=== PATIENT | female | born 1955 | race Caucasian/White ===

== ENCOUNTER 2019-10-18 06:50 | Day surgery (SDC) | payer BC ==
[~2019-10-18 06:50] MED LIST: ULTRAM50 MG OR
[2019-10-18 09:33] VITALS: BP 132/69
== END 2019-10-18 09:20 | disposition home or self-care (01) | DRG 951 ==
LOC: ENDO 06:50
PROVIDERS: ATTEND Surgery
PROC: 0DJD8ZZ Inspection of Lower Intestinal Tract, Via Natural or Artificial Opening Endoscopic (ICD-10-PCS; principal; 2019-10-18)
DX: Z12.11 Encounter for screening for malignant neoplasm of colon (principal); Z85.038 Personal history of other malignant neoplasm of large intestine; Z90.49 Acquired absence of other specified parts of digestive tract; Z88.0 Allergy status to penicillin; Z20.828 Contact with and (suspected) exposure to other viral communicable diseases

== ENCOUNTER 2021-09-01 11:46 | Observation (INO) | payer BC ==
[~2021-09-01] VITALS: Ht 160 cm; Wt 73.0 kg
[2021-09-01] VITALS (58 sets, daily range): BP systolic 126–215; BP diastolic 82–149
[2021-09-01 12:32] LABS: HEMATOCRIT 49.1 % (37.0-47.0); HEMOGLOBIN 16.6 g/dl (12.0-16.0); MEAN CELL VOLUME 101.7 fL CALC (80.0-100.0); MEAN CORPUSCULAR HGB 34.4 pG CALC (26.0-32.0); MEAN CORPUSCULAR HGB CONC 33.8 g/dL CAL (32.0-36.0); NEUT# 3.06 thou/uL (2.00-7.15); RED BLOOD COUNT 4.83 mill/uL (4.20-5.60); RED CELL DISTRI WIDTH 12.1 % (11.5-15.5)
[2021-09-01 13:43] LABS: BUN 4 mg/dL (8-23); BUN/CREATININE RATIO 9 (12-20 (CALC)); CARBON DIOXIDE 25 mmol/l (22-30); CHLORIDE 96 mmol/l (95-108); CREATININE 0.5 mg/dL (0.5-1.0); GFR FOR AFR.AMER. > 60 ML/MIN (>=60 (CALC)); GFR OTHER RACES > 60 ML/MIN (>=60 (CALC)); SODIUM 138 mmol/l (137-146); TOTAL PROTEIN 8.7 g/dL (6.3-8.2)
[2021-09-01 13:44] LABS: ALKALINE PHOSPHATASE 146 u/l (38-126); ANION GAP 20 (6-22 (CALC)); BILIRUBIN, TOTAL 1.5 mg/dL (0.0-1.4); SGOT/AST 154 u/l (9-36)
[2021-09-01 14:34] LABS: TSH, 3RD GENERATION 1.54 uIU/mL (0.47 - 4.68)
[2021-09-02] VITALS (51 sets, daily range): BP systolic 124–263; BP diastolic 74–215
[2021-09-02 04:16] LABS: ANION GAP 8 (6-22 (CALC)); BUN 6 mg/dL (8-23); BUN/CREATININE RATIO 15 (12-20 (CALC)); CALCULATED LDLCHOLESTEROL 78 mg/dL (62-129 (CALC)); CARBON DIOXIDE 28 mmol/l (22-30); CHLORIDE 103 mmol/l (95-108); CHOLESTEROL HDL RATIO 2.2 (<4.4 (CALC)); CREATININE 0.4 mg/dL (0.5-1.0); GFR FOR AFR.AMER. > 60 ML/MIN (>=60 (CALC)); GFR OTHER RACES > 60 ML/MIN (>=60 (CALC)); HDL CHOLESTEROL 78 mg/dL (>=40); MAGNESIUM 1.8 mg/dL (1.6-2.3); POTASSIUM 2.7 mmol/l (3.5-5.1); SODIUM 137 mmol/l (137-146); TOTAL CHOLESTEROL 175 mg/dl (0-199); TOTAL TRIGLYCERIDES 92 mg/dl (30-149); VLDL CHOLESTROL 18 mg/dl (1-41 (CALC))
[2021-09-03] VITALS (28 sets, daily range): BP systolic 112–174; BP diastolic 61–105
[2021-09-03 05:32] LABS: MEAN CELL VOLUME 104.4 fL CALC (80.0-100.0); MEAN CORPUSCULAR HGB 34.8 pG CALC (26.0-32.0); MEAN CORPUSCULAR HGB CONC 33.3 g/dL CAL (32.0-36.0); RED BLOOD COUNT 4.08 mill/uL (4.20-5.60); RED CELL DISTRI WIDTH 12.4 % (11.5-15.5)
[2021-09-03 05:33] LABS: HEMATOCRIT 42.6 % (37.0-47.0); HEMOGLOBIN 14.2 g/dl (12.0-16.0)
[2021-09-03 05:44] LABS: ANION GAP 10 (6-22 (CALC)); BUN 6 mg/dL (8-23); BUN/CREATININE RATIO 14 (12-20 (CALC)); CARBON DIOXIDE 25 mmol/l (22-30); CHLORIDE 106 mmol/l (95-108); CREATININE 0.4 mg/dL (0.5-1.0); GFR FOR AFR.AMER. > 60 ML/MIN (>=60 (CALC)); GFR OTHER RACES > 60 ML/MIN (>=60 (CALC)); MAGNESIUM 1.8 mg/dL (1.6-2.3); SODIUM 138 mmol/l (137-146)
[2021-09-03] MEDS ORDERED: CHLORDIAZEPOXID25 M1 PO (08:46)
[2021-09-03] MEDS ORDERED: AMLODIPINE BESYL5 MG PO (08:46)
[2021-09-03] MEDS ORDERED: LOPRESSOR 550 MG/TAB PO (08:46)
[2021-09-03] MEDS ORDERED: POTASSIUM CHLO10 ME4 PO (08:46)
== END 2021-09-03 16:10 | disposition home or self-care (01) | DRG 309 ==
LOC: ED 11:46 → ED-I 14:43 → ED 14:58 → ICU 14:59
PROVIDERS: Family Medicine; ADMIT Internal Medicine; ATTEND Internal Medicine
DX: R00.0 Tachycardia, unspecified (principal); F10.239 Alcohol dependence with withdrawal, unspecified; I10 Essential (primary) hypertension; Z90.49 Acquired absence of other specified parts of digestive tract; Z20.822 Contact with and (suspected) exposure to COVID-19
CPT/HCPCS: J1650; J2060; J3475